=== PATIENT | male | born 1955 | race Caucasian/White ===

== ENCOUNTER 2019-06-19 08:29 | Observation (INO) | payer OTHER ==
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
[2019-06-19 09:33] LABS: ABS Eosinophils 0.1 10^3/ul (0-0.6); ABS Lymphocytes 1.8 10^3/ul (1.0-4.8); ABS Monocytes 0.6 10^3/ul (0-0.8); ABS Neutrophils 4.5 10^3/ul (1.5-7.7); Eosinophil % 0.9 %; Hematocrit 47 % (42-52); Lymphocyte % 26.2 %; Mean Corpuscular HGB Conc 34 g/dL (31-36); Mean Corpuscular Hemoglobin 31 pg (27-31); Mean Corpuscular Volume 91 fL (80-94); Nucleated Red Blood Cells % 0.2; Platelet Count 170 10^3/uL (150-450); Red Blood Count 5.16 10^6 /uL (4.18-5.48); Red Cell Distribution Width 14 % (10-15)
[2019-06-19 09:41] LABS: Albumin 4.1 g/dL (3.2-5.2); Albumin/Globulin Ratio 1.2 (1-3); BUN/Creatinine Ratio 18.9 (8-20); Calcium 9.4 mg/dL (8.6-10.3); EGFR African American 85.7 (>60); EGFR Non-African American 70.8 (>60); Globulin 3.3 g/dL (2-4); Potassium 4.4 mmol/L (3.5-5.0); Total Bilirubin 0.4 mg/dL (0.2-1.0); Total Protein 7.4 g/dL (6.4-8.9); Troponin I 0.01 ng/mL (<0.03)
[2019-06-19] MEDS ORDERED: Dextrose 50% Syringe 50 ML* 25 GM/50 ML SYRINGE IV PUSH PRN (11:44)
[2019-06-19] MEDS ORDERED: Nitroglycerin TAB 0.4 MG* 0.4 MG TAB SL PRN (13:58)
[2019-06-19] MEDS ORDERED: Acetaminophen TAB* 325 MG PO PRN (14:00)
[2019-06-19] MEDS ORDERED: Morphine INJ* 2 MG/ML 1 ML SYRINGE (TWO MG - NEW SYRINGE VERSION) IV ONE (14:04)
[2019-06-19 15:36] LABS: Troponin I 0.01 ng/mL (<0.03)
--- NOTE | 2019-06-19 15:54 | ECHO ---
*[facility]* [place] [address] Fax #: [phone] Transthoracic Echocardiogram Patient: Eliezer Montero [id number] : 1955 Study Date: 06/19/2019 Age: 63 Gender: M HR: 80 bpm Height: 66 in /167.6 cm BSA: 1.87 m^2 Weight: 169.6 lb /77.1 kg BMI: 27.4 kg/m^2 *Cane Flume Watchman: * Mellisa Baird [facility] *Referring Physician: * Kathleen Snow *Reading Physician: * Velvet Ibrahim MD Indications: Chest Pain, unspecified. History: Atrial fibrillation. Risk factors: Hypertension. Diabetes mellitus. Conclusions Summary: - Left ventricle: The cavity size is mildly reduced. Wall thickness is moderately increased. Systolic function is reduced. The estimated ejection fraction is 30-35%. Moderate diffuse hypokinesis with no identifiable regional variations. - Right ventricle: Systolic function is normal. - Mitral valve: There is mild regurgitation. - Aortic valve: The findings are consistent with stenosis, KI may be overestimated due to depressed ejection fraction. DI and visual appearance of the valve do not suggest severe . There is trace to mild regurgitation. The mean systolic gradient is 3.0 mm Hg. The LVOT to aortic valve VTI ratio is 0.45. The valve area by the velocity-time integral method is 1.43 cm^2. The ratio of LVOT to aortic valve peak velocity is 0.6. The valve area by the peak velocity method is 1.70 cm^2. - Tricuspid valve: There is trace to mild regurgitation. - Pulmonary arteries: Systolic pressure is within the normal range. The peak pressure during systole by Doppler is 25.0 mm Hg. - No prior echocardiogram available to compare. Study data: Transthoracic echocardiogram. Procedure: Transthoracic echocardiography was performed. Image quality was fair. Complete 2D, spectral Doppler, and color flow Doppler. Location: Bedside. Patient status: Inpatient. Patient room number: 432. Rhythm: Atrial fibrillation. Findings Left ventricle: The cavity size is mildly reduced. Wall thickness is moderately increased. Systolic function is reduced. The estimated ejection fraction is 30-35%. Moderate diffuse hypokinesis with no identifiable regional variations. Left ventricular diastolic function parameters are indeterminate. Right ventricle: The cavity size is normal. Systolic function is normal. Left atrium: The atrium is dilated. Right atrium: The atrium is mildly dilated. Mitral valve: The Mitral valve annulus appears calcified. The leaflets are mildly thickened. There is no evidence of stenosis. There is mild regurgitation. Aortic valve: The annulus is mildly calcified. The valve is probably trileaflet. The leaflets are mildly thickened. Valve mobility is restricted. The findings are consistent with stenosis. There is trace to mild regurgitation. Tricuspid valve: The leaflets are normal thickness. There is no evidence of stenosis. There is trace to mild regurgitation. Pulmonic valve: Not well visualized. There is no significant regurgitation. Aorta: Aortic root: The aortic root is mildly dilated. Ascending aorta: The ascending aorta is upper normal in size. Aortic arch: The aortic arch is appears normal. Pericardium: There is no significant pericardial effusion. Pulmonary arteries: Systolic pressure is within the normal range. Systemic veins: Inferior vena cava: The vessel is normal in size. There is (>= 50%) respiratory change in the IVC dimension. Measurements Left ventricle Value Ref Aortic valve continued Value Ref MILIND, LAX (L) 3.8 cm 4.2 - 5.8 Peak v, S 1.1 m/sec --------- ESD, LAX 3.1 cm 2.5 - 4.0 VTI, S 22.0 cm --------- FS, LAX (L) 18 % 25 - 43 Mean grad, S 3.0 mm Hg --------- PW, ED, LAX (H) 1.6 cm 0.6 - 1.0 Peak grad, S 5.0 mm Hg --------- E', lat [place], TDI (L) 7.2 cm/sec >=10.0 LVOT/AV, VTI 0.45 - -------- E/e', lat [place], 7 ratio TDI KI, VTI 1.43 cm^2 --------- KI, Vmax 1.70 cm^2 --------- LVOT Value Ref Diam, S 2.00 cm Mitral valve Value Ref Area 3.1 cm^2 Peak E 0.51 m/sec --------- Peak lillie, S 0.6 m/sec Decel time 119 ms --------- VTI, S 10.0 cm Peak grad, S 1 mm Hg Tricuspid valve Value Ref Mean grad, S 1 mm Hg TR peak v 2 m/sec <=2.8 SV 31 ml Peak RV-RA grad, 16 mm Hg --------- S Ventricular septum Value Ref IVS, ED (H) 1.8 cm 0.6 - 1.0 Aortic root Value Ref Root diam 3.6 cm <4.0 Right ventricle Value Ref Root max 1.9 cm/m^2 1.3 - 2.1 MILIND, LAX 2.5 cm diam/bsa, ED MILIND minor ax, A4C 2.7 cm 1.9 - 3.5 mid Ascending aorta Value Ref Pressure, S 25 mm Hg AAo AP diam, S 3.5 cm --------- AAo AP diam/bsa, 1.9 cm/m^2 --------- Left atrium Value Ref S AP dim, ES 3.20 cm 3.00 - 4.00 Aortic arch Value Ref ML dim, A4C 5.3 cm Arch diam 2.9 cm --------- SI dim, A4C 5.5 cm Arch diam/bsa 1.6 cm/m^2 --------- Right atrium Value Ref Decending aorta Value Ref SI dim, ES (H) 5.8 cm 3.4 - 5.3 Mansi peak lillie 0.26 m/sec --------- ML dim, ES, A4C 3.7 cm 2.6 - 4.4 Estimated RAP 8 mm Hg Pulmonary artery Value Ref Pressure, S 25.0 mm Hg --------- Aortic valve Value Ref [place] diam, ED 2.2 cm Inferior vena cava Value Ref Diam 1.6 cm --------- Legend: (L) and (H) claudia values outside specified reference range. Prepared and electronically signed by Velvet Ibrahim MD 06/19/2019 15:53
[2019-06-19] MEDS ORDERED: Iodixanol* (CONTRAST) 320 MG/ML 100 ML SDV IV ONE ×2 (16:45→21:53)
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
[2019-06-19] MEDS: Insulin LISPRO* 1 UNITS UNIT SUBCUT SCH ×2 (18:09→21:08)
--- NOTE | 2019-06-19 18:59 | PN ---
Hospitalist Progress Note Date of Service: 06/19/19 At approximately 1355 nursing called stating that pt was c/o CP to mid chest, rating 5/10. EKG, nitro and morphine ordered, 3rd trop was scheduled to be drawn soon after. Nursing called back stating that pt denied any CP after nitro was given. Morphine d/c'd. Upon reassessment resident caregiver yuridia on ipad was used to communicate with pt, pt stated that he did not have another episode of CP, was speaking of his original episode. Encouraged resident caregiver yuridia with ipad be used with nursing for communication.
[2019-06-19 20:13] LABS: Amylase 40 U/L (29-103)
[2019-06-19] MEDS: Apixaban* 5 MG TAB PO SCH (20:18)
[2019-06-19] MEDS ORDERED: Metoprolol Succinate XL TAB* 50 MG PO SCH (21:00)
[2019-06-19] MEDS ORDERED: Atorvastatin* 20 MG TAB PO SCH (21:00)
[2019-06-19] MEDS ORDERED: Metoprolol Succinate XL TAB* 25 MG PO SCH (21:00)
[2019-06-20 05:52] LABS: ABS Basophils 0.1 10^3/ul (0-0.2); ABS Lymphocytes 1.5 10^3/ul (1.0-4.8); ABS Monocytes 0.5 10^3/ul (0-0.8); ABS Neutrophils 6.2 10^3/ul (1.5-7.7); Eosinophil % 0.4 %; Hematocrit 46 % (42-52); Hemoglobin 15.5 g/dL (14.0-18.0); Lymphocyte % 17.9 %; Mean Corpuscular HGB Conc 34 g/dL (31-36); Mean Corpuscular Hemoglobin 31 pg (27-31); Mean Corpuscular Volume 90 fL (80-94); Mean Platelet Volume 8.8 fL (7.4-10.4); Nucleated Red Blood Cells % 0.1; Platelet Count 177 10^3/uL (150-450); Red Blood Count 5.06 10^6 /uL (4.18-5.48); Red Cell Distribution Width 13 % (10-15); White Blood Count 8.3 10^3/uL (3.5-10.8)
[2019-06-20 06:11] LABS: BUN/Creatinine Ratio 23.8 (8-20); Calcium 9.1 mg/dL (8.6-10.3); EGFR Non-African American 92.6 (>60); Magnesium 1.7 mg/dL (1.9-2.7); Potassium 3.4 mmol/L (3.5-5.0)
[2019-06-20] MEDS ORDERED: Potassium Chlor TAB* 20 MEQ TAB.ER PO ONE (07:06)
[2019-06-20] MEDS ORDERED: Magnesium Sulfate 2 GM IV* 2 GM/50 ML BAG IVPB ONE (07:06)
[2019-06-20] MEDS: Insulin LISPRO* 1 UNITS UNIT SUBCUT SCH ×2 (07:36→12:04)
[2019-06-20] MEDS: Apixaban* 5 MG TAB PO SCH (08:00)
[2019-06-20] MEDS ORDERED: Metoprolol Succinate XL TAB* 50 MG PO SCH (09:00)
[2019-06-20] MEDS ORDERED: Lisinopril TAB* 10 MG PO SCH (09:00)
[2019-06-20] MEDS ORDERED: Spironolactone TAB* 25 MG PO SCH (10:30)
--- NOTE | 2019-06-20 14:01 | PN ---
Subjective Date of Service: 06/20/19 Interval History: HD2 on 06/19 63M PMH AF not on AC, NIDDM, PSA, Chronic Hep C, who is currently incarcerated, who presented with atypical CP. Echo found to have new reduced ejection fraction, but no other signs of ischemia. Overnight 1 episode of CP, but resolved without much intervention VSS This morning, seen by resident, was at stress test most of AM, seen after stress test and aware results are neg. Objective Active Medications: Acetaminophen (Tylenol Tab*) 650 mg PO Q8H PRN PRN Reason: PAIN - MILD Apixaban (Eliquis*) 5 mg PO BID [facility] Last Admin: 06/20/19 08:00 Dose: 5 mg Aspirin (Aspirin Ec Tab*) 81 mg PO DAILY [facility] Atorvastatin Calcium (Lipitor*) 20 mg PO BEDTIME [facility] Last Admin: 06/19/19 20:17 Dose: 20 mg Dextrose (D50w Syringe 50 Ml*) 12.5 gm IV PUSH .FOR FS < 60 - SS PRN PRN Reason: FS < 60 Insulin Human Lispro (Humalog*) 0 units SUBCUT ACHS [facility]; Protocol Last Admin: 06/20/19 12:04 Dose: Not Given Lisinopril (Prinivil Tab*) 20 mg PO DAILY [facility] Last Admin: 06/20/19 08:00 Dose: 20 mg Metoprolol Succinate (Toprol Xl Tab*) 50 mg PO DAILY [facility] Last Admin: 06/20/19 12:04 Dose: 50 mg Nitroglycerin (Nitroglycerin Tab 0.4 Mg*) 0.4 mg SL Q5M PRN PRN Reason: ANGINA Last Admin: 06/19/19 14:11 Dose: 0.4 mg Spironolactone (Aldactone Tab*) 25 mg PO DAILY [facility] Last Admin: 06/20/19 12:04 Dose: 25 mg Vital Signs - 8 hr 06/20/19 06/20/19 06/20/19 07:15 07:37 11:00 Temperature 97.6 F 97.5 F Pulse Rate 73 87 Respiratory 16 16 Rate Blood Pressure 160/90 146/99 (mmHg) O2 Sat by Pulse 98 99 Oximetry Oxygen Devices in Use Now: None Appearance: Pleasant luxembourgish speaking man in NAD Respiratory: Clear to Auscultation Cardiovascular: - - Fib Abdominal: NL Sounds; No Tenderness; No Distention, No Hepatosplenomegaly Extremities: No Edema Skin: No Rash or Ulcers Neurological: Alert and Oriented x 3 Result Diagrams: 06/20/19 05:23 06/20/19 05:23 Assess/Plan/Problems-Billing Assessment: 63M PMH AF not on AC, NIDDM, PSA, Chronic Hep C, who is currently incarcerated, who presented with atypical CP. Echo found to have new reduced ejection fraction, but no other signs of ischemia, neg stress test. Possibly NICM, or rate related low ejection fraction in setting of hx of Afib that is now currently rate controlled. Stable for d/c - Patient Problems (1) Chest pain Current Visit: Yes Status: Acute Code(s): R07.9 - CHEST PAIN, UNSPECIFIED SNOMED Code(s): 57616067 Comment: -atypical CP on hx, possibly related to fib, or non cardiac source as NM stress and trops were neg -Pain free, stable to be d/c (2) Atrial fibrillation Current Visit: Yes Status: Acute Code(s): I48.91 - UNSPECIFIED ATRIAL FIBRILLATION SNOMED Code(s): 38827957 Comment: -CHADS VASC 3, start Elqiuis, appreciate shared decision making done by Kathleen Snow KILN LOADER (3) Polysubstance abuse Current Visit: Yes Status: Acute Code(s): F19.10 - OTHER PSYCHOACTIVE SUBSTANCE ABUSE, UNCOMPLICATED SNOMED Code(s): 770973085 Comment: -Now in remission while incarcerated (4) Hepatitis C Current Visit: Yes Status: Acute Comment: -Consider tx in outpt setting (5) Heart failure with reduced ejection fraction Current Visit: Yes Status: Acute Code(s): I50.20 - UNSPECIFIED SYSTOLIC ( CONGESTIVE) HEART FAILURE SNOMED Code(s): 302942802 Comment: -EF 30-35% -Optimized on BB, asa, Metoprolol, ACEI and starting spironolactone for continued HTN and optimization (6) Diabetes mellitus Current Visit: Yes Status: Acute Code(s): E11.9 - TYPE 2 DIABETES MELLITUS WITHOUT COMPLICATIONS SNOMED Code(s): 48176590 Comment: -A1C 7.9, Continue metfomrin uptitrate as toelrated -On DAVID, STATIN (7) DVT prophylaxis Current Visit: Yes Status: Acute Code(s): Z29.9 - ENCOUNTER FOR PROPHYLACTIC MEASURES, UNSPECIFIED SNOMED Code(s): 075701253 Comment: -On Justen (8) Full code status Current Visit: Yes Status: Acute Code(s): Z78.9 - OTHER SPECIFIED HEALTH STATUS SNOMED Code(s): 431541552
--- NOTE | 2019-06-20 14:13 | PN ---
Hospitalist Progress Note Date of Service: 06/19/19 addendum to admission H+P from 06/19/19: HEART score 3, low score, risk of MACE 0.9-1.7%.
[2019-06-20 15:22] VITALS: BP 150/96
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
[2019-06-21] MEDS ORDERED: Aspirin EC TAB* 81 MG TAB.EC PO SCH (09:00)
== END 2019-06-20 15:14 ==
LOC: ED 08:29 → MEDTELE 11:26 → EEVIPCON 11:26
PROVIDERS: ADMIT Internal Medicine; ATTEND Internal Medicine
DX: R07.89 Other chest pain (principal); R06.02 Shortness of breath; I48.20 Chronic atrial fibrillation, unspecified; R91.8 Other nonspecific abnormal finding of lung field; I11.0 Hypertensive heart disease with heart failure; I50.9 Heart failure, unspecified; E11.9 Type 2 diabetes mellitus without complications; B19.20 Unspecified viral hepatitis C without hepatic coma; F17.210 Nicotine dependence, cigarettes, uncomplicated; F14.10 Cocaine abuse, uncomplicated; F11.10 Opioid abuse, uncomplicated; Z79.82 Long term (current) use of aspirin; Z79.84 Long term (current) use of oral hypoglycemic drugs; Z79.899 Other long term (current) drug therapy; Z79.01 Long term (current) use of anticoagulants
CPT/HCPCS: 36415; 71046; 71260; 74177; 78452; 80048; 80053; 82150; 82947; 83036; 83690; 83735; 84484; 85025; 93005; 93017; 93306; 96365; 96366; 99284; A9270-GY; A9502; G0378; J3475; Q9967